=== PATIENT | female | born 1955 | race Caucasian/White ===

== ENCOUNTER 2016-11-02 17:30 | Inpatient (IN) | payer OTHER ==
[~2016-11-02] VITALS: Ht 157.5 cm; Wt 75.3 kg
[2016-11-02] MEDS ORDERED: TEMAZEPAM 15 MG CAPSULE PO PRN (18:30)
[2016-11-02 19:00] VITALS: BP 137/60
[2016-11-02 21:03] LABS: APPEARANCE,URINE CLEAR (CLEAR); GLUCOSE, URINE (UA) NEGATIVE (NEGATIVE); KETONES,URINE NEGATIVE (NEGATIVE); LEUKOCYTE ESTERASE ,URINE NEGATIVE (NEGATIVE); PROTEIN,URINE NEGATIVE (NEGATIVE)
[2016-11-02 21:13] LABS: OCCULT BLOOD,URINE TRACE (NEGATIVE); SQUAMOUS EPITHELIAL CELL,UR Few /LPF (None Seen); WBC,URINE 0-2 /HPF (0-5)
[2016-11-02] MEDS: ATORVASTATIN CALCIUM 40 MG TABLET PO SCH (21:19)
[2016-11-02] MEDS: DOCUSATE SODIUM 100 MG CAPSULE PO SCH (21:20)
[2016-11-02] MEDS: IBUPROFEN 400 MG TABLET PO PRN (21:21)
[2016-11-03] VITALS: BP 133/70
[2016-11-03 06:54] LABS: BASOPHILS % (AUTO) 0.7 % (0.0-2.0); EOSINOPHILS % (AUTO) 6.2 % (1.0-6.0); HEMATOCRIT 38.1 % (36-46); HEMOGLOBIN 12.6 g/dL (12.0-16.0); LYMPHOCYTES # (AUTO) 1.6 K/uL (1.0-4.8); LYMPHOCYTES % (AUTO) 35.9 % (22.0-44.0); MEAN CORPUSCULAR HEMOGLOBIN 28.8 pg (26.0-34.0); MEAN CORPUSCULAR VOLUME 87 fL (80-100); MONOCYTES # (AUTO) 0.4 K/uL (0.1-1.0); MONOCYTES % (AUTO) 8.8 % (2.0-9.0); NEUTROPHILS # (AUTO) 2.1 K/uL (1.8-7.7); NEUTROPHILS % (AUTO) 48.4 % (40.0-70.0); PLATELET COUNT (AUTO) 222 K/uL (150-450); RED BLOOD CELL COUNT(AUTO) 4.36 MIL/uL (4.00-5.20); RED CELL DISTRIBUTION WIDTH 13.3 % (11.5-14.5); WHITE BLOOD COUNT (AUTO) 4.3 K/uL (4.5-11.0)
[2016-11-03 07:12] LABS: ALANINE AMINOTRANSFERASE 25 U/L (12-78); ALBUMIN 3.6 g/dL (3.4-5.0); ANION GAP 8 mmol/L (8-16); ASPARTATE AMINOTRANSFERASE 7 U/L (15-37); BILIRUBIN,TOTAL 0.6 mg/dL (0.1-1.0); CALCIUM, TOTAL 8.6 mg/dL (8.8-10.5); CARBON DIOXIDE 27 mmol/L (22-29); CHLORIDE 106 mmol/L (98-107); CREATININE 0.77 mg/dL (0.60-1.30); GLOMERULAR FILTR. RATE CALC > 60 mL/min (>60); SODIUM SERUM 141 mmol/L (136-145); TOTAL PROTEIN, SERUM 6.7 g/dL (6.4-8.2); UREA NITROGEN, BLOOD 14 mg/dL (7-18)
[2016-11-03 07:33] VITALS: BP 138/74
[2016-11-03] MEDS: ASPIRIN 81 MG EC TABLET PO SCH (07:52)
[2016-11-03] MEDS: IBUPROFEN 400 MG TABLET PO PRN ×2 (07:52→13:43)
[2016-11-03] MEDS: ENOXAPARIN SODIUM 40 MG/0.4 ML PF SYRINGE SQ SCH (07:52)
[2016-11-03] MEDS: DOCUSATE SODIUM 100 MG CAPSULE PO SCH ×2 (07:52→21:35)
[2016-11-03] MEDS ORDERED: MELATONIN 3 MG TABLET PO PRN (15:30)
[2016-11-03 15:48] VITALS: BP 152/71
[2016-11-03] MEDS: ATORVASTATIN CALCIUM 40 MG TABLET PO SCH (21:35)
[2016-11-04 04:00] VITALS: BP 131/61
[2016-11-04 07:00] VITALS: BP 142/78
[2016-11-04] MEDS: ASPIRIN 81 MG EC TABLET PO SCH (08:08)
[2016-11-04] MEDS: ENOXAPARIN SODIUM 40 MG/0.4 ML PF SYRINGE SQ SCH (08:08)
[2016-11-04] MEDS: DOCUSATE SODIUM 100 MG CAPSULE PO SCH ×2 (08:08→20:22)
[2016-11-04] MEDS ORDERED: ONDANSETRON HCL 4 MG TABLET PO ONE (10:45)
[2016-11-04] MEDS: FAMOTIDINE 20 MG TABLET PO SCH (11:10)
[2016-11-04] MEDS: ACETAMINOPHEN 325 MG TABLET PO PRN (14:18)
[2016-11-04 15:18] VITALS: BP 152/76
[2016-11-04] MEDS: ATORVASTATIN CALCIUM 40 MG TABLET PO SCH (20:22)
[2016-11-04 20:51] LABS: CREATINE KINASE, TOTAL 115 U/L (26-192)
[2016-11-04 20:53] LABS: CREATINE KINASE MB < 0.5 ng/mL (0-5)
[2016-11-04] MEDS: DiphenhydrAMINE HCL 25 MG CAPSULE PO PRN (22:33)
[2016-11-05 00:57] VITALS: BP 138/66
[2016-11-05] MEDS: FAMOTIDINE 20 MG TABLET PO SCH (06:18)
[2016-11-05] MEDS: ASPIRIN 81 MG EC TABLET PO SCH (07:59)
[2016-11-05] MEDS: DOCUSATE SODIUM 100 MG CAPSULE PO SCH ×2 (07:59→20:32)
[2016-11-05] MEDS: ENOXAPARIN SODIUM 40 MG/0.4 ML PF SYRINGE SQ SCH (07:59)
[2016-11-05] MEDS: 0.9% SODIUM CHLORIDE 10 ML SYRINGE IVP SCH ×2 (07:59→16:13)
[2016-11-05 08:19] VITALS: BP 123/62
[2016-11-05] MEDS: ACETAMINOPHEN 325 MG TABLET PO PRN (14:42)
[2016-11-05 15:02] VITALS: BP 125/67
[2016-11-05] MEDS: ATORVASTATIN CALCIUM 40 MG TABLET PO SCH (20:32)
[2016-11-05] MEDS: DiphenhydrAMINE HCL 25 MG CAPSULE PO PRN (22:13)
[2016-11-06] VITALS: BP 120/54
[2016-11-06] MEDS: 0.9% SODIUM CHLORIDE 10 ML SYRINGE IVP SCH ×3 (02:50→16:23)
[2016-11-06] MEDS: FAMOTIDINE 20 MG TABLET PO SCH (06:28)
[2016-11-06 07:30] VITALS: BP 141/72
[2016-11-06] MEDS: DOCUSATE SODIUM 100 MG CAPSULE PO SCH ×2 (08:05→20:29)
[2016-11-06] MEDS: ASPIRIN 81 MG EC TABLET PO SCH (08:05)
[2016-11-06] MEDS: ENOXAPARIN SODIUM 40 MG/0.4 ML PF SYRINGE SQ SCH (08:06)
[2016-11-06 15:10] VITALS: BP 139/90
[2016-11-06 16:20] VITALS: BP 130/86
[2016-11-06] MEDS: PINDOLOL 5 MG TABLET PO SCH (16:22)
[2016-11-06] MEDS: ATORVASTATIN CALCIUM 40 MG TABLET PO SCH (20:29)
[2016-11-07] MEDS: DiphenhydrAMINE HCL 25 MG CAPSULE PO PRN (00:09)
[2016-11-07] MEDS: 0.9% SODIUM CHLORIDE 10 ML SYRINGE IVP SCH ×3 (00:10→16:24)
[2016-11-07 00:13] VITALS: BP 120/60
[2016-11-07] MEDS: FAMOTIDINE 20 MG TABLET PO SCH (06:15)
[2016-11-07 06:52] LABS: BASOPHILS # (AUTO) 0.03 K/uL (0.00-0.20); BASOPHILS % (AUTO) 0.6 % (0.0-2.0); EOSINOPHILS # (AUTO) 0.13 K/uL (0.00-0.70); EOSINOPHILS % (AUTO) 2.24 % (1.0-6.0); HEMATOCRIT 36.8 % (36-46); HEMOGLOBIN 12.6 g/dL (12.0-16.0); LYMPHOCYTES # (AUTO) 1.6 K/uL (1.0-4.8); LYMPHOCYTES % (AUTO) 27.6 % (22.0-44.0); MEAN CORPUSCULAR HEMOGLOBIN 29.5 pg (26.0-34.0); MEAN CORPUSCULAR HGB CONC 34.2 G/dL (31.0-37.0); MEAN CORPUSCULAR VOLUME 86 fL (80-100); MONOCYTES # (AUTO) 0.4 K/uL (0.1-1.0); MONOCYTES % (AUTO) 7.7 % (2.0-9.0); NEUTROPHILS # (AUTO) 3.5 K/uL (1.8-7.7); NEUTROPHILS % (AUTO) 61.9 % (40.0-70.0); PLATELET COUNT (AUTO) 201 K/uL (150-450); RED BLOOD CELL COUNT(AUTO) 4.27 MIL/uL (4.00-5.20); RED CELL DISTRIBUTION WIDTH 12.6 % (11.5-14.5); WHITE BLOOD COUNT (AUTO) 5.6 K/uL (4.5-11.0)
[2016-11-07 07:13] LABS: ALANINE AMINOTRANSFERASE 38 U/L (12-78); ALBUMIN 3.9 g/dL (3.4-5.0); ANION GAP 10 mmol/L (8-16); ASPARTATE AMINOTRANSFERASE 13 U/L (15-37); BILIRUBIN,TOTAL 0.5 mg/dL (0.1-1.0); CALCIUM, TOTAL 9.1 mg/dL (8.8-10.5); CARBON DIOXIDE 26 mmol/L (22-29); CHLORIDE 106 mmol/L (98-107); CREATININE 0.82 mg/dL (0.60-1.30); GLOMERULAR FILTR. RATE CALC > 60 mL/min (>60); POTASSIUM 3.8 mmol/L (3.5-5.1); SODIUM SERUM 142 mmol/L (136-145); TOTAL PROTEIN, SERUM 7.1 g/dL (6.4-8.2); UREA NITROGEN, BLOOD 15 mg/dL (7-18)
[2016-11-07 07:25] VITALS: BP 139/68
[2016-11-07] MEDS: PINDOLOL 5 MG TABLET PO SCH (08:57)
[2016-11-07] MEDS: DOCUSATE SODIUM 100 MG CAPSULE PO SCH ×2 (08:57→20:08)
[2016-11-07] MEDS: ENOXAPARIN SODIUM 40 MG/0.4 ML PF SYRINGE SQ SCH (08:58)
[2016-11-07] MEDS: ASPIRIN 81 MG EC TABLET PO SCH (08:58)
[2016-11-07 15:26] VITALS: BP 124/60
[2016-11-07] MEDS: ATORVASTATIN CALCIUM 40 MG TABLET PO SCH (20:08)
[2016-11-08 04:38] VITALS: BP 135/81
[2016-11-08] MEDS: FAMOTIDINE 20 MG TABLET PO SCH (06:29)
[2016-11-08] MEDS: 0.9% SODIUM CHLORIDE 10 ML SYRINGE IVP SCH (06:29)
[2016-11-08 06:51] LABS: BASOPHILS % (AUTO) 0.4 % (0.0-2.0); EOSINOPHILS % (AUTO) 3.5 % (1.0-6.0); HEMATOCRIT 35.7 % (36-46); LYMPHOCYTES # (AUTO) 1.5 K/uL (1.0-4.8); LYMPHOCYTES % (AUTO) 26.5 % (22.0-44.0); MEAN CORPUSCULAR HEMOGLOBIN 29.3 pg (26.0-34.0); MEAN CORPUSCULAR HGB CONC 33.8 G/dL (31.0-37.0); MEAN CORPUSCULAR VOLUME 87 fL (80-100); MONOCYTES # (AUTO) 0.4 K/uL (0.1-1.0); MONOCYTES % (AUTO) 7.1 % (2.0-9.0); NEUTROPHILS # (AUTO) 3.5 K/uL (1.8-7.7); NEUTROPHILS % (AUTO) 62.5 % (40.0-70.0); PLATELET COUNT (AUTO) 209 K/uL (150-450); RED BLOOD CELL COUNT(AUTO) 4.11 MIL/uL (4.00-5.20); RED CELL DISTRIBUTION WIDTH 13.5 % (11.5-14.5); WHITE BLOOD COUNT (AUTO) 5.6 K/uL (4.5-11.0)
[2016-11-08 07:00] LABS: ALANINE AMINOTRANSFERASE 49 U/L (12-78); ALBUMIN 3.7 g/dL (3.4-5.0); ANION GAP 10 mmol/L (8-16); ASPARTATE AMINOTRANSFERASE 20 U/L (15-37); BILIRUBIN,TOTAL 0.6 mg/dL (0.1-1.0); CALCIUM, TOTAL 9.1 mg/dL (8.8-10.5); CARBON DIOXIDE 27 mmol/L (22-29); CHLORIDE 106 mmol/L (98-107); CREATININE 0.74 mg/dL (0.60-1.30); GLOMERULAR FILTR. RATE CALC > 60 mL/min (>60); SODIUM SERUM 143 mmol/L (136-145); UREA NITROGEN, BLOOD 17 mg/dL (7-18)
[2016-11-08 07:07] VITALS: BP 122/59
[2016-11-08] MEDS: ASPIRIN 81 MG EC TABLET PO SCH (08:13)
[2016-11-08] MEDS: PINDOLOL 5 MG TABLET PO SCH (08:13)
[2016-11-08] MEDS: DOCUSATE SODIUM 100 MG CAPSULE PO SCH ×2 (08:13→20:11)
[2016-11-08] MEDS: ENOXAPARIN SODIUM 40 MG/0.4 ML PF SYRINGE SQ SCH (08:13)
[2016-11-08 16:00] VITALS: BP 135/80
[2016-11-08] MEDS: ATORVASTATIN CALCIUM 40 MG TABLET PO SCH (20:11)
[2016-11-09 03:00] VITALS: BP 124/67
[2016-11-09] MEDS: FAMOTIDINE 20 MG TABLET PO SCH (06:06)
[2016-11-09 07:19] VITALS: BP 132/79
[2016-11-09] MEDS: PINDOLOL 5 MG TABLET PO SCH (07:59)
[2016-11-09] MEDS: ENOXAPARIN SODIUM 40 MG/0.4 ML PF SYRINGE SQ SCH (07:59)
[2016-11-09] MEDS: ASPIRIN 81 MG EC TABLET PO SCH (07:59)
[2016-11-09] MEDS: DOCUSATE SODIUM 100 MG CAPSULE PO SCH ×2 (07:59→20:18)
[2016-11-09 16:37] VITALS: BP 122/66
[2016-11-09] MEDS: ATORVASTATIN CALCIUM 40 MG TABLET PO SCH (20:18)
[2016-11-10 00:38] VITALS: BP 116/52
[2016-11-10] MEDS: FAMOTIDINE 20 MG TABLET PO SCH (05:20)
[2016-11-10 07:04] VITALS: BP 124/63
[2016-11-10] MEDS: ASPIRIN 81 MG EC TABLET PO SCH (08:44)
[2016-11-10] MEDS: DOCUSATE SODIUM 100 MG CAPSULE PO SCH ×2 (08:44→21:53)
[2016-11-10] MEDS: ENOXAPARIN SODIUM 40 MG/0.4 ML PF SYRINGE SQ SCH (08:44)
[2016-11-10] MEDS: PINDOLOL 5 MG TABLET PO SCH (08:44)
[2016-11-10 15:10] VITALS: BP 129/63
[2016-11-10] MEDS: ATORVASTATIN CALCIUM 40 MG TABLET PO SCH (21:54)
[2016-11-11 04:10] VITALS: BP 136/67
[2016-11-11] MEDS: FAMOTIDINE 20 MG TABLET PO SCH (06:07)
[2016-11-11 07:03] VITALS: BP 128/79
[2016-11-11] MEDS: DOCUSATE SODIUM 100 MG CAPSULE PO SCH ×2 (08:12→20:44)
[2016-11-11] MEDS: ENOXAPARIN SODIUM 40 MG/0.4 ML PF SYRINGE SQ SCH (08:12)
[2016-11-11] MEDS: PINDOLOL 5 MG TABLET PO SCH (08:12)
[2016-11-11] MEDS: ASPIRIN 81 MG EC TABLET PO SCH (08:12)
[2016-11-11 15:30] VITALS: BP 133/75
[2016-11-11] MEDS: ATORVASTATIN CALCIUM 40 MG TABLET PO SCH (20:44)
[2016-11-11 21:22] LABS: GLUCOSE,POINT OF CARE 94 MG/DL (70-110)
[2016-11-11 23:56] VITALS: BP 129/71
[2016-11-12 03:43] VITALS: BP 146/66
[2016-11-12] MEDS: ACETAMINOPHEN 325 MG TABLET PO PRN (03:43)
[2016-11-12 03:47] LABS: GLUCOSE,POINT OF CARE 88 MG/DL (70-110)
[2016-11-12] MEDS: FAMOTIDINE 20 MG TABLET PO SCH (06:18)
[2016-11-12 07:30] VITALS: BP 143/77
[2016-11-12] MEDS: ASPIRIN 81 MG EC TABLET PO SCH (08:07)
[2016-11-12] MEDS: PINDOLOL 5 MG TABLET PO SCH (08:07)
[2016-11-12] MEDS: DOCUSATE SODIUM 100 MG CAPSULE PO SCH ×2 (08:08→20:13)
[2016-11-12] MEDS: ENOXAPARIN SODIUM 40 MG/0.4 ML PF SYRINGE SQ SCH (08:08)
[2016-11-12 15:29] VITALS: BP 147/64
[2016-11-12] MEDS: ATORVASTATIN CALCIUM 40 MG TABLET PO SCH (20:13)
[2016-11-12] MEDS ORDERED: ONDANSETRON HCL 4 MG TABLET PO PRN (22:15)
[2016-11-13 00:23] VITALS: BP 128/66
[2016-11-13] MEDS ORDERED: FAMO20 PO (04:21)
[2016-11-13] MEDS ORDERED: DSS100 PO (04:21)
[2016-11-13] MEDS ORDERED: ASPI-1093 PO (04:21)
[2016-11-13] MEDS ORDERED: PIND5TAB PO (04:21)
[2016-11-13] MEDS: FAMOTIDINE 20 MG TABLET PO SCH (05:48)
[2016-11-13 08:29] VITALS: BP 121/56
[2016-11-13] MEDS: ASPIRIN 81 MG EC TABLET PO SCH (09:22)
[2016-11-13] MEDS: DOCUSATE SODIUM 100 MG CAPSULE PO SCH ×2 (09:22→20:29)
[2016-11-13] MEDS: PINDOLOL 5 MG TABLET PO SCH (09:22)
[2016-11-13] MEDS: ENOXAPARIN SODIUM 40 MG/0.4 ML PF SYRINGE SQ SCH (09:22)
[2016-11-13 20:00] VITALS: BP 128/74
[2016-11-13] MEDS: ATORVASTATIN CALCIUM 40 MG TABLET PO SCH (20:27)
[2016-11-14 00:47] VITALS: BP 114/45
[2016-11-14] MEDS: DiphenhydrAMINE HCL 25 MG CAPSULE PO PRN (01:20)
[2016-11-14] MEDS ORDERED: [UNRECOGNIZED DRUG - CODE] PO (04:08)
[2016-11-14] MEDS ORDERED: [UNRECOGNIZED DRUG - CODE] PO (04:08)
[2016-11-14] MEDS: FAMOTIDINE 20 MG TABLET PO SCH (06:43)
[2016-11-14 07:11] VITALS: BP 117/61
[2016-11-14] MEDS: ENOXAPARIN SODIUM 40 MG/0.4 ML PF SYRINGE SQ SCH (07:54)
[2016-11-14] MEDS: DOCUSATE SODIUM 100 MG CAPSULE PO SCH ×2 (07:54→20:54)
[2016-11-14] MEDS: ASPIRIN 81 MG EC TABLET PO SCH (07:54)
[2016-11-14] MEDS: PINDOLOL 5 MG TABLET PO SCH (07:54)
[2016-11-14 17:30] VITALS: BP 122/68
[2016-11-14] MEDS ORDERED: ATORVASTATIN CALCIUM 40 MG TABLET PO SCH (21:00)
[2016-11-15 00:48] VITALS: BP 124/47
[2016-11-15] MEDS: FAMOTIDINE 20 MG TABLET PO SCH (06:15)
[2016-11-15 07:53] VITALS: BP 140/66
[2016-11-15] MEDS: ASPIRIN 81 MG EC TABLET PO SCH (08:58)
[2016-11-15] MEDS: DOCUSATE SODIUM 100 MG CAPSULE PO SCH ×2 (08:58→20:45)
[2016-11-15] MEDS: PINDOLOL 5 MG TABLET PO SCH (08:58)
[2016-11-15 16:40] VITALS: BP 124/73
[2016-11-15] MEDS: DiphenhydrAMINE HCL 25 MG CAPSULE PO PRN (23:20)
[2016-11-15 23:32] VITALS: BP 120/61
[2016-11-16] MEDS ORDERED: ROSU10 PO (02:01)
[2016-11-16] MEDS ORDERED: COENZQ100 PO (02:01)
[2016-11-16] MEDS: FAMOTIDINE 20 MG TABLET PO SCH (06:02)
[2016-11-16 07:08] VITALS: BP 127/57
[2016-11-16] MEDS: PINDOLOL 5 MG TABLET PO SCH (08:53)
[2016-11-16] MEDS: ASPIRIN 81 MG EC TABLET PO SCH (08:54)
[2016-11-16] MEDS: DOCUSATE SODIUM 100 MG CAPSULE PO SCH (08:54)
[2016-11-16] MEDS ORDERED: ROSUVASTATIN CALCIUM 10 MG TABLET PO SCH (09:00)
[2016-11-16] MEDS ORDERED: UBIDECARENONE 100 MG CAPSULE PO SCH (09:00)
== END 2016-11-16 13:40 | disposition home or self-care (01) | DRG 56 ==
LOC: 2WR 17:30
PROVIDERS: ADMIT Physical Medicine & Rehabilitation; ATTEND Physical Medicine & Rehabilitation
DX: I69.354 Hemiplegia and hemiparesis following cerebral infarction affecting left non-dominant side (principal); I63.9 Cerebral infarction, unspecified; F33.2 Major depressive disorder, recurrent severe without psychotic features; I20.0 Unstable angina; I10 Essential (primary) hypertension; I49.5 Sick sinus syndrome; E06.3 Autoimmune thyroiditis; E78.5 Hyperlipidemia, unspecified; Z98.890 Other specified postprocedural states; Z88.1 Allergy status to other antibiotic agents; Z78.0 Asymptomatic menopausal state; Z91.14 Patient's other noncompliance with medication regimen; Z86.73 Personal history of transient ischemic attack (TIA), and cerebral infarction without residual deficits; Z80.0 Family history of malignant neoplasm of digestive organs; Z80.1 Family history of malignant neoplasm of trachea, bronchus and lung; Z83.3 Family history of diabetes mellitus
CPT/HCPCS: 82962; 83735; 87081; 92507; 92523; 93005; 93306; 97110; 97112; 97116; 97150; 97162; 97167; 97530; 97535; 99366; J1650; Q0162